=== PATIENT | male | born 1960 | race Caucasian/White ===

== ENCOUNTER 2022-07-29 14:47 | Emergency (ER) | payer SELFPAY ==
[2022-07-29 14:56] VITALS: BP 157/85; PULSE 102; RESP 18; TEMP 36.6; O2SAT 96
--- NOTE | 2022-07-29 15:02 | ED.URI ---
HPI - URI/Sore Throat General Chief Complaint: Upper Respiratory Infection Stated Complaint: Chest Congestion/Cough Time Seen by Provider: 07/29/22 15:02 Source: patient and RN notes reviewed History of Present Illness HPI Narrative: patient is a 61-year-old male who presents to the Urgent Care with complaints of congestion, rhinorrhea and cough. Patient states that started on July 17, seemed to have gotten better and now he is coughing worse at night in the last 5 days. Patient denies any fever, nausea, vomiting, shortness of breath or chest pain. States that he has been using Mucinex and Jenn-Leeds. No other acute complaints. No acute distress noted. Patient aware of the plan of care. Some parts of this dictation were generated by voice recognition software and may contain typographical and/or grammatical inaccuracies. Related Data Home Medications Medication Instructions Recorded Confirmed atorvastatin 10 mg tablet 10 mg DAILY 07/29/22 07/29/22 Allergies Allergy/AdvReac Type Severity Reaction Status Date / Time No Known Allergies Allergy Verified 07/29/22 15:05 Review of Systems Review of Systems: CONSTITUTIONAL: Denies fever, chills, or sweats. EYES: Denies visual changes, redness, or discharge. ENT: Reports rhinorrhea, sinus congestion, postnasal drainage CARDIOVASCULAR: Denies chest pain, palpitations, or edema. RESPIRATORY: reports of cough without dyspnea GASTROINTESTINAL: Denies abdominal pain, nausea, vomiting, or diarrhea. GENITOURINARY: Denies dysuria or hematuria. SKIN: Denies rash or itching. MUSCULOSKELETAL: Denies back pain, joint pain, or myalgia. NEUROLOGIC: Denies headache, numbness, or weakness. All other systems reviewed are negative, except as documented in HPI. PMFSH Comments At the time of my signature, I reviewed and agree with the nursing past medical, surgical, social, and family history. There is no relevant family history pertinent to the patient complaint. Exam Narrative: GENERAL: This is a well-nourished, well-developed patient, in no apparent distress. HEAD: normocephalic, atraumatic. EYES: PERRL. Sclera clear/white. Vision is grossly intact. EARS: External ears normal, auditory canals clear and without drainage, TMs normal without perforation. Hearing grossly intact. NOSE: External nose normal with no obvious nasal discharge, mildly erythemic edematous tuberosities bilaterally with clear to yellow rhinorrhea THROAT: Mucous membranes moist, mild erythema noted to posterior pharynx with moderate postnasal drainage NECK: Neck supple CARDIOVASCULAR: Regular rate and rhythm without murmurs, gallops, or rubs. RESPIRATORY: Clear to auscultation. Breath sounds equal bilaterally. No wheezes, rales, or rhonchi. SKIN: warm, intact with no suspicious lesions or rash, good texture and turgor. NEURO: awake, alert, and oriented to person, place and time. There were no obvious focal neurologic abnormalities. EXTREMITIES: No clubbing, cyanosis, or edema. Course Course Level of Care: Express Care Visit Vital Signs Vital signs: Vital Signs Temperature 98 F 07/29/22 14:56 Pulse Rate 102 H 07/29/22 14:56 Respiratory Rate 18 07/29/22 14:56 Blood Pressure 157/85 H 07/29/22 14:56 Pulse Oximetry 96 07/29/22 14:56 Oxygen Delivery Room Air 07/29/22 14:56 Temperature 98 F 07/29/22 14:56 Pulse Rate 102 H 07/29/22 14:56 Respiratory Rate 18 07/29/22 14:56 Blood Pressure 157/85 H 07/29/22 14:56 Pulse Oximetry 96 07/29/22 14:56 Oxygen Delivery Room Air 07/29/22 14:56 reviewed- Patient is informed that they may have pre-hypertension or hypertension based on a blood pressure reading in the department. I recommend the patient call the primary care provider listed on their discharge instructions or a physician of their choice this week to arrange follow-up for further evaluation of possible pre-hypertension or hypertension. MDM - URI/Sore Throat
== END 2022-07-29 15:32 | disposition home or self-care (01) ==
PROVIDERS: Emergency Provider Nurse Practitioner Family; PCP Nurse Practitioner Family
DX: J06.9 Acute upper respiratory infection, unspecified (principal); E78.00 Pure hypercholesterolemia, unspecified
CPT/HCPCS: 99213; G0463